=== PATIENT | male | born 1970 | race Caucasian/White ===

== ENCOUNTER 2019-03-22 22:40 | Emergency (ER) | payer OTHER ==
[~2019-03-22] VITALS: Ht 180.3 cm; Wt 110.0 kg
[~2019-03-22 22:40] MED LIST: ADDERALL30 MG PO; CIPROFLOXACN500 MG PO; FLOMAX0.4 M1 PO; LORTAB 1010 MG PO; LORTAB 5 OR; NEXIUM40 MG PO; ONDANSETRON4 MG PO; PERCOCET1 TA4 PO; PREVACID30 M2 PO
[2019-03-22 23:08] LABS: HEMOGLOBIN 13.4 g/dl (14.0-18.0); IMMATURE GRANULOCYTES 0.4 % (0.0-5.0); MEAN CELL VOLUME 88.3 fL CALC (80.0-100.0); MEAN CORPUSCULAR HGB 29.6 pG CALC (26.0-32.0); MEAN CORPUSCULAR HGB CONC 33.5 g/L CALC (32.0-36.0); NEUT# 8.26 thou/uL (1.82-7.42); RED BLOOD COUNT 4.53 mill/uL (4.70-6.10); RED CELL DISTRI WIDTH 12.5 % (11.5-15.5)
[2019-03-22 23:21] LABS: ALBUMIN 4.8 g/dL (3.2-5.0); ALKALINE PHOSPHATASE 76 u/l (38-126); BUN 21 mg/dL (9-20); BUN/CREATININE RATIO 16 (12-20 (CALC)); CHLORIDE 98 mmol/l (95-108); CREATININE 1.3 mg/dL (0.7-1.3); GFR 59 ML/MIN (>=60 (CALC)); GFR FOR AFR.AMER. > 60 ML/MIN (>=60 (CALC)); POTASSIUM 3.7 mmol/l (3.5-5.1); SGOT/AST 25 u/l (17-59); SODIUM 137 mmol/l (137-146); TOTAL PROTEIN 7.7 g/dL (6.3-8.2)
[2019-03-22 23:22] LABS: ANION GAP 14 (6-22 (CALC)); BILIRUBIN, TOTAL 0.9 mg/dL (0.0-1.4); CARBON DIOXIDE 29 mmol/l (22-30)
[2019-03-23 00:40] LABS: URINE BILIRUBIN - DIPSTICK NEGATIVE (NEGATIVE); URINE BLOOD DIPSTICK MODERATE (NEGATIVE); URINE COLOR YELLOW; URINE GLUCOSE - DIPSTICK NEGATIVE (NEGATIVE); URINE KETONE NEGATIVE (NEGATIVE); URINE LEUK ESTERASE NEGATIVE (NEGATIVE); URINE NITRITE - DIPSTICK NEGATIVE (Negative); URINE PH 5.5 (4.5-8.0); URINE PROTEIN - DIPSTICK NEGATIVE (NEG-TRACE); URINE UROBILINOGEN - DIPSTICK 0.2 E.U./dL (0.2)
[2019-03-23] MEDS ORDERED: TAMSULOSIN0.4 MG PO (00:47)
[2019-03-23] MEDS ORDERED: LORTAB 1010 MG PO (00:47)
[2019-03-23 00:55] VITALS: BP 122/72
== END 2019-03-23 00:55 | disposition home or self-care (01) | DRG 694 ==
LOC: ED 22:40
PROVIDERS: Emergency Medicine
DX: N20.0 Calculus of kidney (principal); Z87.442 Personal history of urinary calculi

== ENCOUNTER 2021-05-30 09:59 | Emergency (ER) | payer OTHER ==
[~2021-05-30] VITALS: Ht 180.3 cm; Wt 117.0 kg
[~2021-05-30 09:59] MED LIST changes: +TAMSULOSIN0.4 MG PO
[2021-05-30] MEDS ORDERED: OMNI-PAC300 MG PO (12:44)
[2021-05-30 13:20] VITALS: BP 140/83
== END 2021-05-30 13:20 | disposition home or self-care (01) | DRG 605 ==
LOC: ED 09:59
PROC: 0HQFXZZ Repair Right Hand Skin, External Approach (ICD-10-PCS; principal; 2021-05-30)
DX: S61.011A Laceration without foreign body of right thumb without damage to nail, initial encounter (principal); R53.1 Weakness; K21.9 Gastro-esophageal reflux disease without esophagitis; X58.XXXA Exposure to other specified factors, initial encounter; Y93.89 Activity, other specified; Y92.009 Unspecified place in unspecified non-institutional (private) residence as the place of occurrence of the external cause

== ENCOUNTER 2024-11-22 22:53 | Emergency (ER) | payer OTHER ==
[~2024-11-22] VITALS: Ht 177.8 cm; Wt 90.0 kg
[~2024-11-22 22:53] MED LIST changes: +AMOXICILLIN500 MG PO; +MELOXICAM15 MG PO; +NEXIUM40 M1 PO; +OMNI-PAC300 MG PO; +PEPCID40 MG PO; +VALACYCLOVIR HYD1 GM PO; +WELLBUTRIN XL150 MG PO
[2024-11-22 22:59] VITALS: BP 168/103
[2024-11-22 23:15] VITALS: BP 111/76
[2024-11-22 23:18] LABS: BASO% 0.6 % (0-3); EOS% 2.2 % (0-8); HEMATOCRIT 41.8 % (39.0-50.0); HEMOGLOBIN 13.7 g/dl (14.0-18.0); IMMATURE GRANULOCYTES 0.1 % (0.0-5.0); LYMPH% 31.3 % (15-41); MEAN CELL VOLUME 91.1 fL CALC (80.0-100.0); MEAN CORPUSCULAR HGB 29.8 pG CALC (26.0-32.0); MEAN CORPUSCULAR HGB CONC 32.8 g/dL CAL (32.0-36.0); MONO% 8.6 % (2-13); NEUT# 4.08 thou/uL (1.82-7.42); NEUT% 57.2 % (42-76); RED BLOOD COUNT 4.59 mill/uL (4.70-6.10); RED CELL DISTRI WIDTH 12.5 % (11.5-15.5)
[2024-11-22] MEDS ORDERED: ACETAMINOPHEN 500 MG TAB PO ONE (23:25)
[2024-11-22] MEDS ORDERED: NITROGLYCERIN 0.4 MG/TAB SL ONE (23:25)
[2024-11-22 23:29] LABS: ALBUMIN 4.6 g/dL (3.2-5.0); ALKALINE PHOSPHATASE 62 u/l (38-126); ANION GAP 10 (6-22 (CALC)); BILIRUBIN, TOTAL 0.9 mg/dL (0.2-1.3); BUN 20 mg/dL (9-20); BUN/CREATININE RATIO 22 (12-20 (CALC)); CARBON DIOXIDE 26 mmol/l (22-30); CHLORIDE 105 mmol/l (95-108); CREATININE 0.9 mg/dL (0.7-1.3); ESTIMATED GFR 101 ML/MIN (>=90 (CALC)); POTASSIUM 3.8 mmol/l (3.5-5.1); SODIUM 137 mmol/l (137-146); TOTAL PROTEIN 7.5 g/dL (6.3-8.2)
[2024-11-22 23:30] VITALS: BP 113/78
[2024-11-22 23:31] LABS: SGOT/AST 45 u/l (17-59)
[2024-11-22 23:39] LABS: ACT PARTIAL THROMBO TIME 20.5 SECONDS (20.0-32.5); D-DIMER 0.55 mg/L (0.19-0.60)
[2024-11-22 23:40] LABS: PROTHROMBIN TIME 10.5 SECONDS (9.0-12.5)
[2024-11-22 23:45] VITALS: BP 105/68
[2024-11-23] VITALS (11 sets, daily range): BP systolic 88–102; BP diastolic 57–68
== END 2024-11-23 02:27 | disposition home or self-care (01) | DRG 313 ==
LOC: ED 22:53
PROVIDERS: Family Medicine
DX: R07.9 Chest pain, unspecified (principal); K21.9 Gastro-esophageal reflux disease without esophagitis; I25.2 Old myocardial infarction